=== PATIENT | male | born 1955 | race Caucasian/White ===

== ENCOUNTER 2023-03-24 13:33 | Emergency (ER) | payer MEDICARE, BC, SELFPAY ==
[2023-03-24 13:45] VITALS: BP 155/87; PULSE 74; RESP 16; TEMP 36.6; O2SAT 97; BMI 42.8
--- NOTE | 2023-03-24 14:21 | ED_ITS ---
HPI - General Adult General Chief complaint: Abdominal Pain Stated complaint: Catheter problem Time Seen by Provider: 03/24/23 13:35 History of Present Illness HPI narrative: Patient is a 68-year-old white male who presents with pain after having his catheter removed today when he had prior prostate surgery. He had this done in the [facility]. He comes to the local ER. He reports that with movement or with urination he had a couple of drops a urine and it caused severe pain. He has n ot been passing blood but he was passing some blood clots. I asked if he would like to get a catheter back as I would suggest that and he declines that. His bladder scan only showed like 100 mL of urine. Patient feels better lying down. He also feels like he has constipation and has had a ?gas? feeling in his abdomen. He has not had a bowel movement for several days. We discussed workup options including imaging and catheter placement and lab studies and he wishes to try some pain medicine and to see if he has constipation as is issue. I think that is reasonable will give him a Kemp tablet and also give him a Enemeez enema and see if that will help his situation. Again he declined to get a catheter at this time. Related Data Home Medications Medication Instructions Recorded Confirmed atorvastatin 40 mg tablet 40 mg PO DAILY 03/24/23 03/24/23 glimepiride 2 mg tablet 2 mg PO DAILY 03/24/23 03/24/23 metformin 500 mg tablet 500 mg PO BID 03/24/23 03/24/23 Previous Rx's Medication Instructions Recorded ciprofloxacin HCl 250 mg tablet 250 mg PO BID #10 tabs 03/24/23 (Cipro) Allergies Allergy/AdvReac Type Severity Reaction Status Date / Time Penicillins Allergy Intermediate Verified 03/24/23 13:44 Review of Systems Status of ROS: Reports: 6 or more systems reviewed and unremarkable except as noted in History and below PFSH PFS Social History Smoking Status: Never smoker Non-prescribed substance use: denies use Exam Narrative: Exam Narrative: Objective: Patient is afebrile It does not appear in any distress He has got several port sites in his abdomen that are healing. His abdomen is obese benign nontender is got some swelling of his foreskin, but he does not appear to have phimosis. Extremities without edema Const: Vital Signs, click to edit/add: Vital Signs - 24 hr 03/24/23 13:45 Temperature 97.9 F Pulse Rate [Right Pulse Oximeter] 74 Respiratory Rate 16 Blood Pressure [Ri ght Upper Arm] 155/87 H Pulse Oximetry 97 Oxygen Delivery Me thod Room Air Course Vital Signs Vital signs: Initial Vital Signs Temperature 97.9 F 03/24/23 13:45 Temperature Source Temporal Artery Scan 03/24/23 13:45 Pulse Rate 74 03/24/23 13:45 Pulse Rhythm Regular 03/24/23 13:45 Respiratory Rate 16 03/24/23 13:45 Blood Pressure 155/87 H 03/24/23 13:45 Blood Pressure Mean 109 H 03/24/23 13:45 Blood Pressure Position Sitting 03/24/23 13:45 Pulse Oximetry 97 03/24/23 13:45 Oxygen Delivery Method Room Air 03/24/23 13:45 Vital Signs Temperature 97.9 F 03/24/23 13:45 Pulse Rate 74 03/24/23 13:45 Respiratory Rate 16 03/24/23 13:45 Blood Pressure 155/87 H 03/24/23 13:45 Pulse Oximetry 97 03/24/23 13:45 Oxygen Delivery Method Room Air 03/24/23 13:45 Temperature 97.9 F 03/24/23 13:45 Pulse Rate 74 03/24/23 13:45 Respiratory Rate 16 03/24/23 13:45 Blood Pressure 155/87 H 03/24/23 13:45 Pulse Oximetry 97 03/24/23 13:45 Oxygen Delivery Method Room Air 03/24/23 13:45 Medical Decision Making [facility] Narrative Medical decision making narrative: Patient is a 60 year white male status post prostatectomy with postoperative pain after removal of the catheter. He certainly could have a blood clot blocking his urinary outlet, but he does able to pass some urine. He does not wish to have a catheter placed again at this point. Will try some pain medicine and enema see if that helps him. He feels better with his low residual urine vomit think he could go home and observe, otherwise may need a catheter placed. Addendum 3:52 p.m.: The patient consented to get a catheter placed as he continued to have intermittent spasms in his bladder area. We did try an enema as well he has not had results from that yet. Once he has a catheter in we can consult with his urologist as needed. Addendum 4:29 p.m.: The patient feels markedly better after catheter was placed he has no further symptoms able to move around without any difficulty. I think preventatively given he is had his catheter pulled and replaced today should be on Cipro 250 b.i.d. for 5 days. They can dis cuss with Dr. Chong regarding removal of the catheter in appropriate time on Monday. Return to ED as needed. Lab Data Labs: Lab Results 03/24/23 Range/Units 16:20 Urine Color Red A (Yellow) Urine Appearance Clear (Clear) Urine pH 6.0 (5.0-8.5) Ur Specific [place] 1.025 (1.000-1.030) Urine Protein 3+ A (Negative) Urine Glucose (UA) 2+ A (Negative) Urine Ketones Trace A (Negative) Urine Blood 3+ A (Negative) Urine Nitrite Negative (Negative) Urine Bilirubin Negative (Negative) Urine Urobilinogen 0.2 (0.2-1.0) Ur Leukocyte Esterase Negative (Negative) Urine RBC >100 A (0-2) Urine WBC 25-50 A (0-5) Ur Squamous Epith Cells Few (None-Few) Urine Bacteria Moderate A (None) Discharge Plan Discharge Clinical Impression: Dysuria, H/O prostatectomy Patient Disposition: Home w/ Parent or Adult Condition: Improved Additional Instructions: Update Dr. Chong on Monday, decide when to get the catheter pulled at that time. Be on Cipro 250 mg twice a day for the next 5 days. Return if problems or concerns. Activity Level: Light activity Discharge Diet: Regular Prescriptions: New ciprofloxacin HCl [Cipro] 250 mg tablet 250 mg PO BID Qty: 10 0RF No Action atorvastatin 40 mg tablet 40 mg PO DAILY metformin 500 mg tablet 500 mg PO BID glimepiride 2 mg tablet 2 mg PO DAILY Follow Up/Referrals: Jase Chong MD [Referring] - Stand Alone Forms: [employer] Info Instructions
[2023-03-24] MEDS: HYDROCODONE/ACETAMIN 7.5-325 TABLET 1 TAB PO (14:28)
[2023-03-24] MEDS: DOCUSATE SODIUM/BENZOCAINE 5 ML ENEMA PR (14:49)
[2023-03-24] MEDS: MORPHINE 10 MG/ML inj 7.5 MG IM (15:43)
[2023-03-24] MEDS: lidocaine HCL 2 % JELLY (TOP) STERILE 6 ML TOPICAL (16:15)
[2023-03-24] MEDS: CIPROFLOXACIN 250 MG TABLET PO (16:36)
[2023-03-24 16:37] LABS: Appearance Urine Clear (Clear); Bilirubin Urine Negative (Negative); Blood Urine 3+ (Negative); Color Urine Red (Yellow); Glucose Urine 2+ (Negative); Ketones Urine Trace (Negative); Leukocyte Esterase Urine Negative (Negative); Nitrite Urine Negative (Negative); Protein Urine 3+ (Negative); Specific Gravity Urine 1.025 (1.000-1.030); Urobilinogen Urine 0.2 (0.2-1.0)
--- NOTE | 2023-03-24 16:37 | ED.NURSE ---
Placed 16 F, 10 cc balloon catheter. Urine drainage pink in color. Patient reported resolution of symptoms after placement.
[2023-03-24 17:02] LABS: Bacteria Urine Moderate; RBC Urine >100 (0-2); Squamous Epithelial Cell Urine Few (None-Few); WBC Urine 25-50 (0-5)
== END 2023-03-24 16:50 | disposition home or self-care (01) ==
PROVIDERS: Emergency Provider Family Medicine; PCP Family Medicine
DX: R30.0 Dysuria (principal)
CPT/HCPCS: 51702; 81001; 87086; 96372; 99283; 99284; A9270; J2270

== ENCOUNTER 2024-01-29 09:53 | Outpatient (CLI) | payer MEDICARE, BC, SELFPAY ==
--- OUTSIDE RECORDS SUMMARY | 2024-01-29 09:55 | XMS_ITS | Clinical Summary ---
Author Organization [employer] [facility] Address [place], [place] [address] Care Team Providers Care Tree Girdler Name Role Phone Rao Garcia MD Unavailable Praveena Donis MD Unavailable [phone] Cindy Long DO Primary Care Provider [phone] Allergies Active Allergy Reactions Criticality Noted Date Comments Ketamine Behavioral Disturbances 03/17/2023 Combative, confused and anxious Penicillins Other - Describe In Comment Field 05/03/2005 states does not work Sulbactam *Unknown - Pt Doesn' t Remember 03/15/2023 Medications Medication Sig Dispensed Refills Start Date End Date Status cholecalciferol (VITAMIN D) 1,000 unit capsuleIndications :Controlled type 2 diabetes mellitus without complication, without long-term current use of insulin (HC) Take 3 capsules by mouth once daily. 0 0 Active aspirin (ECOTRIN) 81 mg enteric coated tabletIndications: Type 2 diabetes mellitus without complication, without long-term current use of insulin (HC) TAKE ONE TABLET BY MOUTH EVERY DAY WITH FOOD 90 Tablet 1 Active blood-glucose meterIndications:T ype 2 diabetes mellitus with chronic kidney disease, without long-term current use of insulin, unspecified CKD stage (HC) Christ contour next 1 Each 2 Active multivitamin (MVI) tablet Take 1 Tablet by mouth once daily. 0 2 Active insulin syringe-needle U-100 1/2 mL 31 gauge x 15/64 syrgIndications:Co ntrolled type 2 diabetes mellitus without complication, without long-term current use of insulin (HC) As directed. use twice daily 100 Each 3 3 Active insulin nph-regular (NovoLIN 70/30 U-100 Insulin) 100 unit/mL (70-30) injIndications:Con trolled type 2 diabetes mellitus without complication, without long-term current use of insulin (HC) Dispense Relion brand. Dispense 22 units breakfast and 40 units supper 20 mL 11 3 Active blood sugar diagnostic (Contour Next Test Strips) stripIndications:T ype 2 diabetes mellitus with chronic kidney disease, without long-term current use of insulin, unspecified CKD stage (HC) USE TO TEST TWO TIMES A DAY 200 Each 3 4 Active lancets (Microlet Lancet)Indications :Type 2 diabetes mellitus with chronic kidney disease, without long-term current use of insulin, unspecified CKD stage (HC) USE FOR TESTING TWICE DAILY 200 Each 3 4 Active fenofibrate 160 mg tabletIndications: High triglycerides TAKE ONE TABLET BY MOUTH EVERY DAY WITH A MEAL 90 Tablet 3 4 Active atorvastatin (LIPITOR) 40 mg tabletIndications: Controlled type 2 diabetes mellitus without complication, without long-term current use of insulin (HC) TAKE ONE TABLET BY MOUTH EVERY DAY 90 Tablet 3 4 Active nystatin (MYCOSTATIN) 100,000 unit/gram topical creamIndications:I ntertrigo Apply topically to affected area(s) two times daily. 30 g 1 4 Active ezetimibe (Zetia) 10 mg tabletIndications: Coronary artery calcification of quileute artery Take 1 Tablet (10 mg) by mouth once daily. 90 Tablet 3 4 Active losartan (COZAAR) 100 mg tabletIndications: Hypertension Take 1 Tablet (100 mg) by mouth once daily. 90 Tablet 3 4 Active empagliflozin (Jardiance) 25 mg tabletIndications: Controlled type 2 diabetes mellitus without complication, without long-term current use of insulin (HC) Take 1 Tablet (25 mg) by mouth once daily. 90 Tablet 1 4 Active semaglutide (Ozempic) 2 mg/3 mL subcutaneous penIndications:Con trolled type 2 diabetes mellitus with stage 3 chronic kidney disease, without long-term current use of insulin (HC) Inject 0.25 mg subcutaneous once weekly for 28 days, THEN 0.5 mg once weekly. 9 mL 1 4 04/21/20 24 Active glimepiride (AMARYL) 2 mg tabletIndications: Type 2 diabetes mellitus with other diabetic kidney complication, with long-term current use of insulin (HC) TAKE ONE TABLET BY MOUTH EVERY DAY WITH A MEAL 90 Tablet 1 4 Active metFORMIN (GLUCOPHAGE) 500 mg tabletIndications: Controlled type 2 diabetes mellitus without complication, with long-term current use of insulin (HC) TAKE ONE TABLET BY MOUTH TWICE A DAY WITH MEALS 180 Tablet 4 Active metFORMIN (GLUCOPHAGE) 500 mg tabletIndications: Controlled type 2 diabetes mellitus without complication, with long-term current use of insulin (HC) TAKE ONE TABLET BY MOUTH TWICE A DAY WITH MEALS 120 Tablet 4 01/15/20 24 Discontinued Active Problems Problem Noted Date Diagnosed Date Coronary artery calcification of quileute artery 0 12/22/2023 Stage 3b chronic kidney disease 10/03/2023 Medication side effect, initial encounter 2022 H/O radical prostatectomy 03/17/2023 Adenocarcinoma of prostate 03/06/2023 Systolic murmur 03/06/2023 Ectatic aorta 05/24/2022 Overview: US aorta May 2022. Repeat imaging 5 years. Obesity, morbid 03/02/2022 Colon polyps 07/29/2016 Type 2 diabetes mellitus with kidney complicatio n 07/27/2015 Prosthetic joint infection 07/24/2015 History of total right hip replacement 5 Mixed hearing loss of right ear 08/30/2013 Sensorineural hearing loss of left ear 4 Elevated uric acid in blood 03/21/2012 GERD (gastroesophageal reflux disease) 1 Unspecified disorder of kidney and ureter 2006 Overview: Mild renal insufficiency Unspecified essential hypertension 02/20/2007 Mixed hyperlipidemia 02/20/2007 Unspecified sleep apnea 02/19/2007 Resolved Problems Problem Noted Date Diagnosed Date Resolved Date C. difficile colitis 07/28/2015 023 Right hip pain 07/24/2015 07/27/2015 Confusion 07/24/2015 07/27/2015 Sepsis 07/24/2015 03/17/2023 SAMY (acute kidney injury) 07/24/2015 Encephalopathy 07/24/2015 03/17/2023 UTI (lower urinary tract infection) 12/05/2014 12/05/2014 Mixed hearing loss, bilateral 03/09/2012 08/30/2013 Overview: Slight conductive loss at 2000 and 4000 Hz ASCVD (arteriosclerotic card iovascular disease) 01/12/2011 04/22/2011 CHF (congestive heart failure) 01/12/2011 04/22/2011 Encounters Date Type Department Care Team Description 01/17/2024 Transcribe Orders [facility] [address] [address] Jase Chong MD 01/13/2024 Refill [facility] [address] [address] Rao Garcia MD Refill Request (Metformin) 01/05/2024 9:00 AM CDT Ancillary Procedure [facility] [address] [place] [address] 01/05/[address] [place] [address] Ingrid Cesar MD Results 01/05/2024 Travel 12/27/2023 Refill [facility] [address] [address] Rao Garcia MD Refill Request (Glimepiride) 12/25/2023 10:30 AM CDT Office Visit [facility] [address] [address] Rao Garcia MD Diabetes (6 month follow up) 12/25/2023 Travel 12/24/2023 Refill [facility] [address] [address] Rao Garcia MD Refill Request (Jardiance) 12/22/2023 10:35 AM CDT Office Visit [facility] [address] [facility] [address] Cindy Long DO Follow Up (Blood Pressure/) 12/22/2023 10:15 AM CDT Orders Only [facility] [address] [place] [address] Lab, [place] [facility]; Outside Order (Dr. Jase Chong) 12/22/2023 Travel 12/12/2023 9:30 AM CDT Office Visit [facility] [address] [place] [id number] Ingrid Cesar MD Follow Up (CT scan 10/17/23) 12/12/2023 Travel 11/15/2023 Refill [facility] [address] [facility] [address] [place] [address] Rao Garcia MD Refill Request (Metformin) from Last 3 Months Immunizations Name Administration Dates Next Due COVID-19 vaccine (Pfizer-Bio NTech 30mcg/0.3mL) 12YO+ BIVALENT PF, MDV 03/02/2022 COVID-19 vaccine (Pfizer-Bio NTech 30mcg/0.3mL) PF, MDV 05/02/2021,09/06/2020,08/16/2020 COVID-19 vaccine Comirnaty ( Pfizer-BioNTech 30mcg/0.3mL) 12YO+ [id number] Formula PF, SDV, PFS 06/01/2023 Influenza Virus, Unspecified 2023,02/28/20 20 Influenza, High-dose Inactivated 04/12/2021 Influenza, IIV3 (Age 6-35 mos) 04/22/2011 Influenza, IIV3 (Age >=3 years) 03/09/2012,04/22 Influenza, IIV4 06/07/2019,04/16/2018,08/03/2015 Influenza, Inactivated AIIV4 (Age 65+ Years) Preserv Free 03/08/2023,04/12/2021,02/28/2020 Pneumococcal Poly,23-Valent (Pneumovax) 02/20/20 10 Td, Preservative Free (age >= 7 Years) 4 Tdap 04/04/2022,02/19/2010 Family History Medical History Relation Name Comments Heart Disease Father CABG, ANGINA, STENT Good Health Mother Diabetes Other GRANDFATHER Cancer-colon Paternal Grandfather Relation Name Status Comments Brother (Age 58) [place] Father Alive Mother Alive Other Paternal Grandfather Social History Tobacco Use Types Packs/Day Years Used Date Smoking Tobacco: Former Cigarettes 2 20 0 10/10/1977 - 10/10/1997 Smokeless Tobacco: Never Tobacco Cessation:Counseling Given: No Alcohol Use Standard Drinks/Week Comments Yes 0 (1 standard drink = 0.6 oz pur e alcohol) very rare 1 per 1-2 years PHQ-2 Answer Date Recorded PHQ-2 TOTAL SCORE 0 10/03/2023 Social Connections Answer Date Recorded Frequency of Communication with Friends and Fami ly 0 10/03/2023 Financial Resource Strain Answer Date R ecorded Difficulty of Paying Living Expenses 3 10/03/2023 Difficulty of Paying Living Expenses Not on file 10/03/2023 Food Insecurity Answer Date Recorded Worried About Running Out of Food in the Last Ye ar 1 10/03/2023 Transportation Needs Answer Date Record ed Lack of Transportation (Medical) 1 10/03/2023 Housing Stability Answer Date Recorded Unable to Pay for Housing in the Last Year 1 10/03/2023 Sex and Gender Information Value Date Recorded Sex Assigned at Not on file Gender Identity Not on file Sexual Orientation Not on file Obstetrics History Last Filed Vital Signs Vital Sign Reading Time Taken Comments Blood Pressure 126/62 12/25/2023 10:14 AM CDT Pulse 72 12/25/2023 10:14 AM CDT Temperature 37.2 ??C (98.9 ??F) 03/18/2023 7:22 AM CD T Respiratory Rate 18 03/18/2023 7:22 AM CDT Oxygen Saturation 99% 12/22/2023 10: 27 AM CDT Inhaled Oxygen Concentration - - Weight 130.2 kg (287 lb 1.6 oz) 024 10:14 AM CDT Height 170.2 cm (5' 7) 12/25/2023 10:1 4 AM CDT Body Mass Index 44.97 12/25/2023 10:14 AM CDT Plan of Treatment Upcoming Encounters Date Type Department Care Team (Late st Contact Info) Description 04/04/2024 10:30 AM CDT Office Visit [facility] [address] [place] [address] Ingrid Cesar MD [address] [facility] [address] [place] [address] 05/28/2024 1:50 PM DUPLICATOR PUNCH OPERATOR Telemedicine [facility] [address] [facility] [address] [place], [place] [id number] Rao Garcia MD [address] [facility] [address] [place] [address] Health Maintenance Due Date Last Done Comments Zoster (shingles) series for age 50+ (1 of 2) 1974 Pneumococcal series for age 65+ (2 of 2 - PCV) 02/19/2011 02/19/2010 COVID-19 vaccine series ( season) 2023 06/01/2023, 03/02/2022, 03/02/2022, Additional history exists Influenza for age 65+ 02/11/2024 03/08/2023 , 2023, 04/12/2021, Additional history exists Depression screening for age 12+ 10/02/2024 10/03/2023, 03/02/2022, 07/31/2019, Additional history exists Medicare Wellness for age 65+ 10/03/2024 10/03/2023, 03/02/2022 BMI (ht and wt on same day) for age 18+ 12/24/2024 12/25/2023, 10/03/2023, 03/02/2022, Additional history exists Colonoscopy through age 75 08/30/2026 08/30/2016, Lipids for age 45-75 12/21/2028 12/22/2023, 07/07/2022, 05/23/2022, Additional history exists Tetanus booster 04/04/2032 04/04/2022, 02/10, 10/24/2003 Hepatitis C screening for ag e 18-79 Completed 10/29/2019 Tdap Completed 04/04/2022, 02/19/2010 AAA screening age 65-74 Completed 05/23/2022 Medical Devices Implanted Type Area Automatic Winder Operator Device Identifier Shelf Expiration Date Model / Serial / Lot [id number] - [id number] Implanted:Qty: 1 on 12/03/2014 by Juan Luis Engel MD at [facility] Ortho Total Joint Right: Hip [employer] 12/09/2021 [id number] / / [id number] Description:64mm OD USE WITH SIZE 64MM OD LINER R3 MULTI-HOLE HEMISPHERICAL STIKTITE COATED SHELL [id number] - [id number] Implanted:Qty: 2 on 12/03/2014 by Juan Luis Engel MD at [facility] Ortho Total Joint [employer] 09/09/2024 [id number] / / [id number] Description:20MM REFLECTION SPHERICAL HEAD SCREW 6.5 MM CANCELLOUS [id number] - [id number] Implanted:Qty: 2 on 12/03/2014 by Juan Luis Engel MD at [facility] Ortho Total Joint Right: Hip [employer] 12/09/2024 [id number] / / [id number] Description:15MM REFLECTION SPHERICAL HEAD SCREW 6.5 MM CANCELLOUS [id number] - [id number] Implanted:Qty: 1 on 12/03/2014 by Juan Luis Engel MD at [facility] Ortho Total Joint Right: Hip [employer] 09/09/2024 [id number] / / [id number] Description:25MM REFLECTION SPHERICAL HEAD SCREW 6.5 MM CANCELLOUS [id number] - [id number] Implanted:Qty: 1 on 12/03/2014 by Juan Luis Engel MD at [facility] Ortho Total Joint Right: Hip [employer] 08/09/2024 [id number] / / [id number] Description:REFLECTION THREA DED CENTRAL HOLE COVER [id number] - [id number] Implanted:Qty: 1 on 12/03/2014 by Juan Luis Engel MD at [facility] Ortho Total Joint Right: Hip [employer] 12/09/2024 [id number] / / [id number] Description:Oxinium 36mm XL/ +12 05/25 TAPER FEMORAL HEAD [id number] - [id number] Implanted:Qty: 1 on 12/03/2014 by Juan uLis Engel MD at [facility] Right: Hip [employer] 09/09/2024 [id number] / / [id number] Description:6.5mm cancellous screw [id number] - [id number] Implanted:Qty: 1 on 12/03/2014 by Juan Luis Engel MD at [facility] Right: Hip [employer] 03/11/2018 [id number] / / [id number] Description:acetabular liner [id number] - [id number] Implanted:Qty: 1 on 12/03/2014 by Juan Luis Engel MD at [facility] Right: Hip [employer] 10/09/2021 [id number] / / [id number] Description:stem lateral wit h Ti/PADILLA Bone Matrix 10cc Stimulan Kit Rapid Cure - [id number] Implanted:Qty: 2 on 07/26/2015 by Phu Solomon MD at [facility] [employer] [id number]# / / [id number] Liner Hip Id36 Od64mm 20deg +4 R3 Xlpe - [id number] Implanted:Qty: 1 on 07/26/2015 by Phu Solomon MD at [facility] Hip [employer] [id number] / / [id number] Head Hip Od36mm +12 05/25 Oxinium Oxin - [id number] Implanted:Qty: 1 on 07/26/2015 by Phu Solomon MD at [facility] Hip [employer] [id number] / / [id number] Liner Hip Id36 Od64mm 20deg +4 R3 Xlpe - [id number] Implanted:Qty: 1 on 07/26/2015 by Phu Solomon MD at [facility] [employer] [id number] / / [id number] Procedures Procedure Name Priority Date/Time Associated Diagnosis Comments ECHO TTE COMPLETE WO CONTRAST Routine 01/05/2024 9:50 AM CDT Coronary artery calcification of quileute artery URINE ALBUMIN TO CREATININE RATIO, RANDOM Routine 12/22/2023 11:06 AM CDT Type 2 diabetes mellitus with other diabetic kidney complication, with long-term current use of insulin (HC) BASIC METABOLIC PANEL Routine 12/22/2023 10:13 AM CDT Controlled type 2 diabetes mellitus with stage 3 chronic kidney disease, without long-term current use of insulin (HC) HEMOGLOBIN A1C Routine 12/22/2023 10:13 AM CDT Controlled type 2 diabetes mellitus with stage 3 chronic kidney disease, without long-term current use of insulin (HC) LIPID PANEL W REFLEX MEASURED LDL Routine 12/22/2023 10:13 AM CDT Screening cholesterol level PSA TOTAL (DIAGNOSTIC) Routine 12/22/2023 10:13 AM CDT Malignant neoplasm of prostate (HC) US AORTA Routine 05/23/2022 10:17 AM DUPLICATOR PUNCH OPERATOR Screening for AAA (abdominal aortic aneurysm) ANTI HCV Routine 10/29/2019 4:25 PM CDT Encounter for hepatitis C screening test for low risk patient COLONOSCOPY 08/30/2016 8:43 AM CDT from Last 3 Months or Most Recently Relevant to Health Maintenance Results * ECHO TTE COMPLETE WO CONTRAST (01/05/2024 9:50 AM CDT) AORTIC VALVE MEAN PG 44 mmHg EJECTION FRACTION 68 % LVEDD 5.2 cm Anatomical Region Laterality Modality Ultrasound 01/05/2024 8:57 AM CDT Narrative 01/05/2024 10:42 AM CDT ECHOCARDIOGRAM MARSHALL CHAVEZ ?Accession#: ?? [id number] : ?1955 68 years Study Date: ?? 01/05/2024 8:57:55 AM Gender: M ? BP: ? 126/62 mmHg Height: 170.00 cm ? BSA: ?2.35 m? ? ? Weight: 130.00 kg ? Tech: ? MSR ?Referring MD: INGRID CESAR Site: ? [facility] Reading Location: Mobile OP Patient Location: Outpatient. Procedure: 2D, Color Doppler and Spectral Doppler. Indication for study: Coronary artery calcification of quileute artery Cardiac Rhythm: Regular.Study quality: Technically limited. Final Impressions: 1. Technically limited exam. 2. Normal left ventricular size, mildly increased wall thickness, normal global systolic function, calculated EF of 68 %. 3. Right ventricular cavity size is normal, global systolic RV function is normal. 4. The aortic valve is calcified, severe stenosis and trivial regurgitation. The aortic valve peak velocity is 4.3 m/s, the peak gradient is 73 mmHg, and the mean gradient is 44 mmHg. The aortic valve area is 0.91 cm? ? ? with a dimensionless index of 0.32. The stroke volume index is 35.2 ml/m? ? ?. Comparison Compared to prior exam of 07-25-15: - There is now severe . Chamber Sizes and Function Normal left ventricular size, mildly increased wall thickness, normal global systolic function, calculated EF of 68 %. Left atrial size is normal. Right ventricular cavity size is normal, global systolic RV function is normal. RV wall thickness is normal. The right atrium is normal. The pulmonary artery is not well visualized. The sinus of Valsalva is normal sized. The ascending aorta is normal sized. Valves, RV Pressures and Diastolic Function The aortic valve is calcified, severe stenosis and trivial regurgitation. The mitral valve is normal in structure, no mitral regurgitation. Indeterminate pattern of LV diastolic filling. The tricuspid valve is normal in structure. Tricuspid regurgitation is trace regurgitation. The pulmonic valve is not well visualized. Trace pulmonary regurgitation. Masses, Effusion, Shunts There is no pericardial effusion. The inferior vena cava is normal sized, respiratory size variation greater than 50%. No left to right shunting was detected by limited color flow Doppler interrogation of the interatrial septum. MEASUREMENTS AND CALCULATIONS 2-D Measurements and LV Function: LVID (d) 5.2 cm Planimetered EF 68 % LVID (s) 2.8 cm LV FS% (2D) ? 46 % IVS (d) ??1.2 cm LVOT diameter ?? 1.9 cm LVPW (d) 1.2 cm HR ?80 bpm Ao Sinus 2.8 cm LA Vol index ?25 ml/m2 Asc Ao ?? 3.5 cm RV Max 4C (d) ?? 4.1 cm Diastology: Mitral ?Tissue Doppler E Peak 0.7 m/s ??e', Septum ? 0.08 m/s A Peak 1.0 m/s ??e', Lateral ?0.10 m/s E/A ?0.7 ?E/e' Average ?? 7.25 DT ? 240 msec Aortic Valve: Vmax ? 4.3 m/s ??SEAMUS (V) ?? 0.94 cm? AI P 1/2 371 msec VTI ?0.91 m ?? SEAMUS (I) ?? 0.91 cm? ? ? LVOT V max 1.4 m/s ??Max PG ?73 mmHg LVOT VTI ?? 0.29 m ?? Mean PG ?? 44 mmHg SV ? 83 ml ?Dim Index 0.32 SV index ?? 35 ml/m? ? ? CO ?6.6 l/min ?CI ?2.8 l/min/m? ? ? Mitral Valve: MVA ?3.2 cm? ? ? MV P 1/2 70 msec Tricuspid Valve and estimated PA pressures: TAPSE 2.8 cm . This study was interpreted by an [facility] accredited facility. ??Final ?? Procedure Note Natanael Coe MD - 01/05/2024 ECHOCARDIOGRAM MARSHALL CHAVEZ : 1955 68 years Study Date: 01/05/2024 8:57:55 AM Gender: M BP: 126/62 mmHg Height: 170.00 cm BSA: 2.35 m? ? ? Weight: 130.00 kg Tech: MSR Referring MD: INGRID CESAR Site: [facility] Reading Location: Mobile OP Patient Location: Outpatient. Procedure: 2D, Color Doppler and Spectral Doppler. Indication for study: Coronary artery calcification of quileute artery Cardiac Rhythm: Regular.Study quality: Technically limited. Final Impressions: 1. Technically limited exam. 2. Normal left ventricular size, mildly increased wall thickness, normalglobal systolic function, calculated EF of 68 %. 3. Right ventricular cavity size is normal, global systolic RV functionis normal. 4. The aortic valve is calcified, severe stenosis and trivialregurgitation. The aortic valve peak velocity is 4.3 m/s, the peakgradient is 73 mmHg, and the mean gradient is 44 mmHg. The aortic valvearea is 0.91 cm? ? ? with a dimensionless index of 0.32. The stroke volumeindex is 35.2 ml/m? ? ?. Comparison Compared to prior exam of 07-25-15: - There is now severe . Chamber Sizes and Function Normal left ventricular size, mildly increased wall thickness, normalglobal systolic function, calculated EF of 68 %. Left atrial size isnormal. Right ventricular cavity size is normal, global systolic RVfunction is normal. RV wall thickness is normal. The right atrium isnormal. The pulmonary artery is not well visualized. The sinus of Valsalvais normal sized. The ascending aorta is normal sized. Valves, RV Pressures and Diastolic Function The aortic valve is calcified, severe stenosis and trivial regurgitation.The mitral valve is normal in structure, no mitral regurgitation.Indeterminate pattern of LV diastolic filling. The tricuspid valve isnormal in structure. Tricuspid regurgitation is trace regurgitation. Thepulmonic valve is not well visualized. Trace pulmonary regurgitation. Masses, Effusion, Shunts There is no pericardial effusion. The inferior vena cava is normal sized,respiratory size variation greater than 50%. No left to right shunting wasdetected by limited color flow Doppler interrogation of the interatrialseptum. MEASUREMENTS AND CALCULATIONS 2-D Measurements and LV Function: LVID (d) 5.2 cm Planimetered EF 68 % LVID (s) 2.8 cm LV FS% (2D) 46 % IVS (d) 1.2 cm LVOT diameter 1.9 cm LVPW (d) 1.2 cm HR 80 bpm Ao Sinus 2.8 cm LA Vol index 25 ml/m2 Asc Ao 3.5 cm RV Max 4C (d) 4.1 cm Diastology: Mitral Tissue Doppler E Peak 0.7 m/s e', Septum 0.08 m/s A Peak 1.0 m/s e', Lateral 0.10 m/s E/A 0.7 E/e' Average 7.25 DT 240 msec Aortic Valve: Vmax 4.3 m/s SEAMUS (V) 0.94 cm? ? ? AI P 1/2 371 msec VTI 0.91 m SEAMUS (I) 0.91 cm? ? ? LVOT V max 1.4 m/s Max PG 73 mmHg LVOT VTI 0.29 m Mean PG 44 mmHg SV 83 ml Dim Index 0.32 SV index 35 ml/m? ? ? CO 6.6 l/min CI 2.8 l/min/m? ? ? Mitral Valve: MVA 3.2 cm? ? ? MV P 1/2 70 msec Tricuspid Valve and estimated PA pressures: TAPSE 2.8 cm . This study was interpreted by an [facility] accredited facility. Final Ingrid Cesar MD ECHO ORD * (ABNORMAL) URINE ALBUMIN TO CREATININE RATIO, RANDOM (12/22/2023 11:06 AM CDT) ALB RAND URINE 887.0 mg/L 12/22/2023 6:11 PM CDT [facility] CREATININE,URIN E 0.47 g/L 12/22/2023 6:11 PM CDT [facility] ALBUMIN TO CREATININE RATIO,RAND UR 1,887.2(H) <30.0 mg/g creat 12/22/2023 6:11 PM CDT [facility] Urine URINE SPECIMEN / Unknown Non-Blood / Unknown 12/22/2023 11:06 AM CDT 12/22/2023 11:06 AM CDT Narrative [facility] - 12/22/2023 6:11 PM CDT If Albumin to Creatinine Ratio is elevated, consider the following: ? Elevations seen with incipient nephropathy associated ?? with diabetes mellitus or hypertension. Stress, exercise,hematuria, ?? and urinary tract infection may also produce elevated results. If clinically indicated, confirm with ?24 Hour Albumin to Creatinine Ratio. ?? Rao Garcia MD URINE [facility] [address] [place] [address], * (ABNORMAL) LIPID PANEL W REFLEX MEASURED LDL (12/22/2023 10:13 AM CDT) CHOLESTEROL,TOTAL 132 100 - 199 mg/dL 12/22/2023 5:30 PM CDT [facility] Comment: Cholesterol, Total Reference Ranges Desirable <200 mg/dL Borderline 200-239 mg/dL High >=240 mg/dL TRIGLYCERIDES 390(H) <150 mg/dL 12/22/2023 5:30 PM CDT [facility] HDL CHOLESTEROL 33(L) >40 mg/dL 5:30 PM CDT [facility] NON-HDL CHOLESTEROL 99 <145 mg/dl 12/22/2023 5:30 PM CDT [facility] CHOL/HDL RATIO 4.00 <4.50 12/22/2023 5:30 PM CDT [facility] LDL CHOLESTEROL 21 <=130 mg/dL 12/22/2023 5:30 PM CDT [facility] VLDL CHOLESTEROL 78(H) <=30 mg/dL 12/22/2023 5:30 PM CDT [facility] PROVIDER ORDERED STATUS FASTING 12/22/2023 5:30 PM CDT [facility] Blood BLOOD SPECIMEN / Unknown Venipuncture / Unknown 12/22/2023 10:13 AM CDT 12/22/2023 10:14 AM CDT Cream.HR CHEMISTRY Performing Organization Address [facility] Co de Phone Number [facility] [address] [place] [address], * PSA TOTAL (DIAGNOSTIC) (12/22/2023 10:13 AM CDT) PSA TOTAL (DIAGNOSTIC) 0.05 <4.00 ng/mL 12/22/2023 5:30 PM CDT [facility] Blood BLOOD SPECIMEN / Unknown Venipuncture / Unknown 12/22/2023 10:13 AM CDT 12/22/2023 10:14 AM CDT Narrative [facility] - 12/22/2023 5:30 PM CDT The test method changed on 12/06/2022. If this test has been used for serial monitoring, rebaselining is recommended. Rebaselining consists of 2 measurements, collected 3-6 weeks apart. The Marium Elecsys total PSA assay is an electrochemiluminescence immunoassay ECLIA performed on the Marium Romelia e immunoassay analyzers. Values obtained with different assay methods may be different and cannot be used interchangeably. Cream.HR CHEMISTRY Performing Organization Address City/[facility]/ZIP Co de Phone Number [facility] [address] [place] [address], * (ABNORMAL) HEMOGLOBIN A1C MONITORING (POCT) (12/22/2023 10:13 AM CDT) Pathologist [facility] HEMOGLOBIN A1C MONITORING (POCT) 8.6(H) <=6.4 % 12/22/2023 10:25 AM CDT [facility] Blood BLOOD SPECIMEN / Unknown Venipuncture / Unknown 12/22/2023 10:13 AM CDT 12/22/2023 10:14 AM CDT Narrative [facility] - 12/22/2023 10:25 AM CDT ? (<=6.9%) ? Indicates good control ? (7.0% to 7.9%) ? Indicates fair control ? (>=8.0%) ? Indicates poor control ?? NOTE: ??These thresholds are guidelines and ?individual targets may vary. Falsely low levels may be seen with: Recent Transfusion, Recent Significant Blood Loss, Hemolytic Diseases, or Falsely elevated levels may be seen with: Untreated Anemias, Splenectomy ? Rao Garcia MD CHEMISTRY Performing Organization Address [facility]/ZIP Co de Phone Number [facility] [address] [place] [address], * (ABNORMAL) BASIC METABOLIC PANEL (12/22/2023 10:13 AM CDT) [facility] SODIUM 141 136 - 145 mmol/L 12/22/2023 5:30 PM CDT [facility] POTASSIUM 4.4 3.5 - 5.1 mmol/L 12/22/2023 5:30 PM CDT [facility] CHLORIDE 106 98 - 107 mmol/L 12/22/2023 5:30 PM CDT [facility] CO2,TOTAL 20(L) 22 - 29 mmol/L 12/22/2023 5:30 PM CDT [facility] ANION GAP 15 5 - 18 12/22/2023 5:30 PM CDT [facility] GLUCOSE 166(H) 70 - 99 mg/dL 12/22/2023 5:30 PM CDT [facility] CALCIUM 9.7 8.8 - 10.2 mg/dL 12/22/2023 5:30 PM CDT [facility] BUN 23 8 - 23 mg/dL 12/22/2023 5:30 PM CDT [facility] CREATININE 1.24(H) 0.70 - 1.20 mg/dL 12/22/2023 5:30 PM T [facility] BUN/CREAT RATIO 19 10 - 20 5:30 PM T [facility] eGFR 63(L) >90 mL/min/1.7 3m2 12/22/2023 5:30 PM T [facility] Comment:As of 2021, eG FR is calculated by the CKD-EPI creatinine equation without race adjustment. ??eGFR can be influenced by muscle mass, exercise, and diet. ??The reported eGFR is an estimation only and is only applicable if the renal function is stable. Blood BLOOD SPECIMEN / Unknown Venipuncture / Unknown 12/22/2023 10:13 AM CDT 12/22/2023 10:14 AM CDT Rao Garcia MD [facility] [address] [place] [address], [place] * US AORTA (05/23/2022 10:17 AM DUPLICATOR PUNCH OPERATOR) Anatomical Region Laterality Modality Abdomen, AORTA Ultrasound 05/23/2022 4:14 PM DUPLICATOR PUNCH OPERATOR Narrative 05/23/2022 4:14 PM DUPLICATOR PUNCH OPERATOR For Patients: ??As a result of the Century Cures Act, medical imaging exams and procedure reports are released immediately into your electronic medical record. ??You may view this report before your referring provider. ??If you have questions, please contact your health care provider. Examination: US abdominal aorta Indication: Abdominal aortic aneurysm screening. Technique: Fleming scale and color Doppler images of the aorta and common iliac arteries are obtained. Comparison: None Findings: Proximal aorta: 2.3 x 2.7 cm Mid aorta: 2.5 x 2.3 cm Distal aorta: 2.2 x 2.2 cm Right common iliac artery: Not visualized Left common iliac artery: Not visualized Recommended imaging interval for ectatic aorta: 2.5-2.9 cm: 5 years Impression: No abdominal aortic aneurysm. Dictated by Ingrid Bowen MD @ May 23 2022 ??4:14PM (Electronically Signed) ?? Procedure Note Ingrid Bowen MD - 05/23/2022 For Patients: As a result of the Cures Act, medical imagingexams and procedure reports are released immediately into your electronicmedical record. You may view this report before your referring provider.If you have questions, please contact your health care provider. Examination: US abdominal aorta Indication: Abdominal aortic aneurysm screening. Technique: Fleming scale and color Doppler images of the aorta and common iliac arteriesare obtained. Comparison: None Findings: Proximal aorta: 2.3 x 2.7 cm Mid aorta: 2.5 x 2.3 cm Distal aorta: 2.2 x 2.2 cm Right common iliac artery: Not visualized Left common iliac artery: Not visualized Recommended imaging interval for ectatic aorta: 2.5-2.9 cm: 5 years Impression: No abdominal aortic aneurysm. Dictated by Ingrid Bowen MD @ May 23 2022 4:14PM (Electronically Signed) Ramonita WEST US * ANTI HCV (10/29/2019 4:25 PM CDT) HEPATITIS C ANTIBODY Non-React kylah Non-React kylah 10/29/2019 9:07 PM CDT [facility] Comment:Antibodies to HCV no t detected; does not exclude the possibility of exposure to HCV. Blood BLOOD SPECIMEN / Unknown Venipuncture / Unknown 10/29/2019 4:25 PM CDT 10/29/2019 4:27 PM CDT Rajeev Arvizu MD SEND OUTS [facility] [address] [place] [address], [place] * COLONOSCOPY (08/30/2016 8:43 AM CDT) 08/30/2016 8:43 AM CDT Narrative Transcriptions Adriano Swanson MD - 08/30/2016 6:16 PM CDT Patient Name: Marshall Chavez Procedure Date: 08/30/2016 Gender: Male Date of : 1955 Admit Type: Ambulatory Procedure: Colonoscopy [facility]ural[facility] Indications/Pre-Op Diagnosis: High risk colon cancer surveillance:Personal history of colonic polyps, history colonpolyps Medications: Midazolam 7 mg IV, Fentanyl 100 microgramsIV Procedure Description: The patient had risks, benefits and alternatives explained to andgave informed consent. The patient had a stable cardiopulmonary status and judged an adequate candidate for conscious sedation. The Colonoscope was passed through the anus and advanced to thececum, identified by appendiceal orifice and ileocecal valve. TheColonoscope was passed through the and advanced to. The patient tolerated the procedure well. The quality of the bowel preparation was fair. The colonoscopy was technically difficult and complex due to poor bowelprep and a tortuous colon. The patient tolerated the procedure well. Complications: No immediate complications. Estimated Blood Loss & Specimen: Estimated blood loss: none. Specimen collected - None Findings: The perianal and digital rectal examinations were normal. The entire examined colon appeared normal on direct and retroflexion views. A few small-mouthed diverticula were found in the entire colon. Impressions/Post-Op Diagnosis: - Preparation of the colon was fair. - The entire examined colon is normal on direct and retroflexionviews. - No specimens collected. Recommendation: - Discharge patient to home. - Resume previous diet. - Continue present medications. - Repeat colonoscopy in 10 years for surveillance. Moderate Sedation: Moderate (conscious) sedation was administered by the endoscopy nurse and supervised by the endoscopist. The following parameters were monitored: oxygen saturation, heart rate, blood pressure, andresponse to care. Total physician intraservice time was 41 minutes. Please see endoscopy/nursing flowsheet for moderate sedation information. Adriano Swanson, 08/30/2016 6:16:40 PM This report has been signed electronically. Note Initiated On: 08/30/2016 8:43 AM Adriano Swanson MD PROCEDURE ORD from Last 3 Months or Most Recently Relevant to Health Maintenance Advance Directives Documents on File Type Date Recorded Patient Cosmetic Account Coordinator Expl anation Healthcare Directive 05/04/2022 MARIANN CAMPUZANO, 05/04/2022 * Full Code (Latest Code Status on File) Date Activated Date Inactivated Comments 03/17/2023 5:48 AM 03/18/2023 3:24 PM Question Answer Comments Code Status Discussion: Unable to Assess Preferences, Provider to review later * Full Code Date Activated Date Inactivated Comments 08/29/2016 7:04 PM 08/30/2016 3:46 PM * Full Code Date Activated Date Inactivated Comments 07/26/2015 3:59 PM 08/03/2015 5:23 PM * Full Code Date Activated Date Inactivated Comments 07/24/2015 3:16 PM 07/26/2015 3:59 PM Question Answer Comments Code Status Discussion: Per Existing Order * Full Code Date Activated Date Inactivated Comments 12/03/2014 3:56 PM 12/06/2014 5:13 PM Care Teams Tree Girdler Relationship Specialty Start Date End Date Cindy LongDO [address] [place] [address] PCP - General Family Practice 10/06/22 Rao Garcia MD [address] [facility] [address] [facility] [address] [place] [address] Endocrinology 03/02/22 Praveena Donis MD [address] [facility] [address] [place] [address] Nephrology 03/02/22
--- OUTSIDE RECORDS SUMMARY | 2024-01-29 09:55 | XMS_ITS | Encounter Summary ---
Author Organization [facility] Address [address] [place] [address] Phone Care Team Providers Care Boxing Promoter Name Role Phone Cindy Long DO Primary Care Provider [phone] Encounter Details Date Type Department Care Team (Late st Contact Info) Description 01/18/2024 10:30 AM CDT Office Visit [facility] [address] [place] [address] Landon Donis MD [address] [place], [place] [id number] Chronic kidney disease stage 3A ([facility]) (Primary Dx); Proteinuria, not otherwise specified; Obesity, not otherwise specified; Essential (primary) hypertension; Obstructive sleep apnea; Renal disorder due to type 2 diabetes mellitus <Diabetic nephropathy> ([facility]) Social History Tobacco Use Types Packs/Day Years Used Date Smoking Tobacco: Former Passive Smoke Exposure: Past Smokeless Tobacco: Never Tobacco Cessation:Counseling Given: No Alcohol Use Standard Drinks/Week Comments Yes 0 (1 standard drink = 0.6 oz pur e alcohol) Sex and Gender Information Value Date Recorded Sex Assigned at Not on file Gender Identity Not on file Sexual Orientation Not on file documented as of this encounter Last Filed Vital Signs Vital Sign Reading Time Taken Comments Blood Pressure 130/66 01/18/2024 10:31 AM CDT Pulse 65 01/18/2024 10:31 AM CDT Temperature 36.4 ??C (97.6 ??F) 01/18/2024 10:31 AM C DT Respiratory Rate - - Oxygen Saturation - - Inhaled Oxygen Concentration - - Weight 133 kg (293 lb) 01/18/2024 10:31 AM CDT Height - - Body Mass Index 45.89 01/25/2023 11:17 AM CDT documented in this encounter Progress Notes * Landon Donis MD - 01/18/2024 10:30 AM CDT Nephrology Outpatient Note [facility] Primary physician: Cindy Long DO Date of consult: 01/18/24 Identification: Follow-up CKD stage 3a Impression: 1. Essential hypertension -controlled 2. Persistent proteinuria -PCR: 1300 mg/g -ACR: 1880 mg/g 12/22/23 3. CKD stage -baseline creatinine 1.3 mg/dl -? chronic progressive component. Recent creatinine dated 12/22/2023 at 1.24 mg/dL. This represents patient's baseline renal function. 4. Type 2 diabetes 5. Obesity 6. Sleep apnea 7. SAMY history Creatinine peaked at 1.97 mg/dL. Has some degree of albuminuria. Ultrasound was nondiagnostic. Resolution noted to a baseline Continues to do well. Diagnosis of prostate cancer Underwent total prostatectomy March 2023. Recently started on Ozempic as well. Recommendations: No labs necessary today. Creatinine baseline Persistent proteinuria in the setting of type 2 diabetes Blood pressure controlled 1. Continue current medications Follow-up 1 year History of Present Illness: Scheduled follow-up. Seen approximately 1 year ago. Prostatectomy performed in March 2023 No complications postprocedure per patient. Pathology consistent with adenocarcinoma the prostate. No apparent requirement for chemotherapy or radiation. Outpatient medications were reviewed. Blood pressure controlled. Recent addition of Ozempic. Generally feels well. Blood pressure controlled off of antihypertensives. Recent outpatient measurement in the range of 120/80. Metformin restarted 500 mg twice daily Active. Working outside daily. No headache or chest pain. No shortness of breath. No significant edema. Past Medical History: Patient Active Problem List Diagnosis Essential (primary) hypertension Acute kidney failure with tubular necrosis (CMS-HCC) Proteinuria Hyperlipidemia Obesity Obstructive sleep apnea Vitamin D deficiency Stage 3b chronic kidney disease (CMS-HCC) Type 2 diabetes mellitus (CMS-HCC) Renal disorder due to type 2 diabetes mellitus (CMS-HCC) Acute renal failure syndrome (CMS-HCC) Chronic kidney disease stage 3A (CMS-HCC) No past medical history on file. No past surgical history on file. Current Medications: Current Outpatient Medications Medication Sig Dispense Refill aspirin EC 81 MG EC tablet 1 tablet by mouth daily 0 atorvastatin (LIPITOR) 40 MG tablet Take 40 mg by mouth 1 (one) time each day cholecalciferol (VITAMIN D-3) 25 MCG (1000 UT) capsule Take 3,000 Units by mouth 1 (one) time each day ezetimibe (ZETIA) 10 MG tablet Take 10 mg by mouth in the morning. fenofibrate (TRIGLIDE) 160 MG tablet TAKE ONE TABLET BY MOUTH EVERY DAY WITH A MEAL glimepiride (AMARYL) 2 MG tablet TAKE ONE TABLET BY MOUTH EVERY DAY WITH A MEAL insulin NPH-insulin regular (NovoLIN 70/30) (70-30) 100 UNIT/ML injection 22 units in the morning and 40 units at night Jardiance 25 MG tablet Take 1 tablet by mouth 1 (one) time each day losartan (COZAAR) 100 MG tablet Take 100 mg by mouth in the morning. metFORMIN (GLUCOPHAGE) 500 MG tablet Take 500 mg by mouth in the morning and 500 mg in the evening.Take with meals. Multiple Vitamin (One-A-Day Essential) tablet Take 1 tablet by mouth in the morning. Ozempic, 0.25 or 0.5 MG/DOSE, 2 MG/3ML solution pen-injector Inject 0.5 mL under the skin per week No current facility-administered medications for this visit. Allergies: Allergies Allergen Reactions Penicillins Unknown states does not work Social History: Retired No other changes. Was able to complete his winter ice fishing trip. Examination: Vitals: 01/18/24 1031 BP: 130/66 BP Location: Left arm Patient Position: Sitting BP Cuff Size: Large adult Pulse: 65 Temp: 97.6 ??F (36.4 ??C) TempSrc: Temporal Weight: 293 lb (133 kg) Wt Readings from Last 4 Encounters: 01/18/24 293 lb (133 kg) 01/25/23 294 lb (133 kg) 01/14/22 293 lb 9.6 oz (133 kg) 07/19/21 289 lb 12.8 oz (131 kg) Physical Exam Constitutional: Appearance: He is well-developed. HENT: Head: Normocephalic. Eyes: Extraocular Movements: EOM normal. Pupils: Pupils are equal, round, and reactive to light. Neck: Musculoskeletal: Normal range of motion. Cardiovascular: Rate and Rhythm: Normal rate and regular rhythm. Heart sounds: Normal heart sounds. Pulmonary: Effort: Pulmonary effort is normal. Breath sounds: Normal breath sounds. Abdominal: Palpations: Abdomen is soft. Comments: Obese Musculoskeletal: General: Edema present. Normal range of motion. Comments: Trace edema Neurological: Mental Status: He is alert and oriented to person, place, and time. Cranial Nerves: No cranial nerve deficit. Psychiatric: Mood and Affect: Mood and affect normal. Data: No visits with results within 12 Day(s) from this visit. Latest known visit with results is: Orders Only on 01/25/2023 Component Date Value Ref Range Status Glucose, Serum/Plasma 01/25/2023 149 (H) 65 - 99 mg/dL Final Urea nitrogen, Serum/Plasma (BUN) 01/25/2023 28 (H) 7 - 25 mg/dL Final Creatinine, Serum/Plasma 01/25/2023 1.20 0.70 - 1.35 mg/dL Final Estimated Glomerular Filtration Ra* 01/25/2023 66 > OR = 60 mL/min/1.73m2 Final Urea nitrogen/Creatinine, Serum/Pl* 01/25/2023 23 (H) 6 - 22 (calc) Final Sodium, Serum/Plasma 01/25/2023 141 135 - 146 mmol/L Final Potassium, Serum/Plasma 01/25/2023 4.4 3.5 - 5.3 mmol/L Final Chloride, Serum/Plasma 01/25/2023 109 98 - 110 mmol/L Final Carbon dioxide CO2), total, Serum/* 01/25/2023 21 20 - 32 mmol/L Final Calcium, Serum/Plasma 01/25/2023 9.6 8.6 - 10.3 mg/dL Final Phosphate, Serum/Plasma 01/25/2023 3.6 2.1 - 4.3 mg/dL Final Albumin, Serum/Plasma 01/25/2023 4.3 3.6 - 5.1 g/dL Final PTH, Intact, Serum/Plasma 01/25/2023 17 16 - 77 pg/mL Final Calcidiol, Serum/Plasma 01/25/2023 23 (L) 30 - 100 ng/mL Final Lab Results Component Value Date CREATININE 1.20 01/25/2023 CREATININE 1.39 (H) 01/14/2022 CREATININE 1.49 (H) 07/19/2021 CREATININE 1.19 08/04/2020 CREATININE 1.02 08/05/2019 CREATININE 0.95 06/16/2014 CREATININE 0.87 08/06/2012 Lab Results Component Value Date PROTCREATUR 1,364 (H) 01/14/2022 PROTCREATUR 1.364 (H) 01/14/2022 PROTCREATUR 1,896 (H) 08/05/2019 PROTCREATUR 1.896 (H) 08/05/2019 PROTCREATUR 823 (H) 05/31/2017 Lab Results Component Value Date PTH 17 01/25/2023 PTH 15 (L) 01/14/2022 PTH 22 07/19/2021 PTH 24 08/04/2020 PTH 16 08/05/2019 PTH 19 05/31/2017 Did review in detail patient's labs from 01/01/24. Results as noted above. Discussed with patient. William Donis [facility] documented in this encounter Plan of Treatment Not on file documented as of this encounter Visit Diagnoses Diagnosis Chronic kidney disease stage 3A ([facility])- Primary Proteinuria, not otherwise specified Obesity, not otherwise specified Essential (primary) hypertension Obstructive sleep apnea Renal disorder due to type 2 diabetes mellitus <Diabetic nephropathy> ([facility]) documented in this encounter Care Teams Boxing Promoter Relationship Specialty Start Date End Date Cindy Long DO [address] [place] [address] PCP - General Family Medicine 01/18/24 documented as of this encounter
--- OUTSIDE RECORDS SUMMARY | 2024-01-29 09:55 | XMS_ITS | Clinical Summary ---
Author Organization [facility] Address [address], [place] [address] Phone Care Team Providers Care Biscuit Maker Name Role Phone Cindy Long Primary Care Provider [phone] Allergies Active Allergy Reactions Criticality Noted Date Comments Penicillins Unknown 05/03/2005 states does not work Medications Medication Sig Dispensed Refills Start Date End Date Status aspirin EC 81 MG EC tablet 1 tablet by mouth daily 0 07/11/2016 Active cholecalciferol (VITAMIN D-3) 25 MCG (1000 UT) capsule Take 3,000 Units by mouth 1 (one) time each day Active Jardiance 25 MG tablet Take 1 tablet by mouth 1 (one) time each day 01/07/2022 Active fenofibrate (TRIGLIDE) 160 MG tablet TAKE ONE TABLET BY MOUTH EVERY DAY WITH A MEAL 11/30/2021 Active glimepiride (AMARYL) 2 MG tablet TAKE ONE TABLET BY MOUTH EVERY DAY WITH A MEAL 12/26/2021 Active insulin NPH-insulin regular (NovoLIN 70/30) (70-30) 100 UNIT/ML injection 22 units in the morning and 40 units at night 08/10/2021 Active metFORMIN (GLUCOPHAGE) 500 MG tablet Take 500 mg by mouth in the morning and 500 mg in the evening. Take with meals. Active atorvastatin (LIPITOR) 40 MG tablet Take 40 mg by mouth 1 (one) time each day 12/10/2023 Active ezetimibe (ZETIA) 10 MG tablet Take 10 mg by mouth in the morning. 12/12/2023 Active losartan (COZAAR) 100 MG tablet Take 100 mg by mouth in the morning. 12/12/2023 Active Multiple Vitamin (One-A-Day Essential) tablet Take 1 tablet by mouth in the morning. 12/31/2021 Active Ozempic, 0.25 or 0.5 MG/DOSE, 2 MG/3ML solution pen-injector Inject 0.5 mL under the skin per week 12/25/2023 04/21/2024 Active Active Problems Problem Noted Date Diagnosed Date Chronic kidney disease stage 3A 01/18/2024 Acute renal failure syndrome 01/14/2022 Stage 3b chronic kidney disease 08/08/2019 Type 2 diabetes mellitus 08/08/2019 Renal disorder due to type 2 diabetes mellitus 0 08/08/2019 Vitamin D deficiency 07/13/2016 Acute kidney failure with tubular necrosis 08/19 Proteinuria 08/20/2015 Hyperlipidemia 08/20/2015 Essential (primary) hypertension 07/20/2012 Obesity 07/20/2012 Obstructive sleep apnea 07/20/2012 Encounters Date Type Department Care Team Description 01/18/2024 10:30 AM CDT Office Visit [facility] [address] [facility] [address] [place] [address] Landon Donis MD Chronic kidney disease stage 3A ([facility]) (Primary Dx); Proteinuria, not otherwise specified; Obesity, not otherwise specified; Essential (primary) hypertension; Obstructive sleep apnea; Renal disorder due to type 2 diabetes mellitus <Diabetic nephropathy> ([facility]) from Last 3 Months Immunizations Name Administration Dates Next Due Fluzone High-Dose 03/08/2023,04/12/2021 Influenza (IM) Preservative Free 04/22/2011 Influenza Split High Dose Pr eservative Free IM 04/12/2021 Influenza TIV (IM) 03/09/2012,04/22/2011 Influenza, Injectable, Quadrivalent 04/12/2021,0 02/28/2020 Influenza, Injectable, Quadr ivalent, Preservative Free 06/07/2019,04/16/2018,08/03/2015 Influenza, Unspecified 2023,02/28/2020 Pfizer Sars-cov-2 Vaccination 06/01/2023, 022 Pneumococcal Polysaccharide 02/19/2010 TD Preservative Free 10/24/2003 Tdap 04/04/2022,02/19/2010 Social History Tobacco Use Types Packs/Day Years Used Date Smoking Tobacco: Former Passive Smoke Exposure: Past Smokeless Tobacco: Never Tobacco Cessation:Counseling Given: No Alcohol Use Standard Drinks/Week Comments Yes 0 (1 standard drink = 0.6 oz pur e alcohol) Sex and Gender Information Value Date Recorded Sex Assigned at Not on file Gender Identity Not on file Sexual Orientation Not on file Last Filed Vital Signs Vital Sign Reading Time Taken Comments Blood Pressure 130/66 01/18/2024 10:31 AM CDT Pulse 65 01/18/2024 10:31 AM CDT Temperature 36.4 ??C (97.6 ??F) 01/18/2024 10:31 AM C DT Respiratory Rate 20 01/14/2022 11:23 AM CDT Oxygen Saturation - - Inhaled Oxygen Concentration - - Weight 133 kg (293 lb) 01/18/2024 10:31 AM CDT Height 170.2 cm (5' 7) 01/25/2023 11:17 AM CDT Body Mass Index 45.89 01/25/2023 11:17 AM CDT Plan of Treatment Health Maintenance Due Date Last Done Comments Diabetic Foot Exam 1965 Ophthalmology Exam 1965 Pneumococcal PPSV23/PCV13 65 + Years / High and Highest Risk (2 of 5 - PCV) 02/19/2011 02/19/2010 COVID-19 Vaccine (2022-2 4 season) 2023 06/01/2023, 03/02/2022, 05/02/2021, Additional history exists Influenza Vaccine (#1) 2024 , 02/28/2020, 06/07/2019, Additional history exists Care Teams Biscuit Maker Relationship Specialty Start Date End Date Cindy Long DO [address] [place] [address] PCP - General Family Medicine 01/18/24
== END 2024-01-29 09:54 | disposition home or self-care (01) ==
PROVIDERS: PCP Family Medicine; Visit Provider Physician Assistant
DX: L03.116 Cellulitis of left lower limb (principal); B95.1 Streptococcus, group B, as the cause of diseases classified elsewhere
CPT/HCPCS: 87070; 87186